=== PATIENT | female | born 1965 | race Hispanic/Latino ===

== ENCOUNTER 2017-07-09 18:35 | Emergency (ER) | payer BC, OTHER ==
[2017-07-09 19:38] LABS: BASOPHILS % (AUTO) 0.5 % (0.0-5.0); EOSINOPHILS % (AUTO) 1.4 % (0.0-8.0); HEMATOCRIT 40.2 % (36-48); LYMPHOCYTES % (AUTO) 37.2 % (21.0-51.0); MEAN CORPUSCULAR HEMOGLOBIN 29.7 pg (27.0-33.0); MEAN CORPUSCULAR HGB CONC 35.1 g/dL (32.0-36.0); MEAN CORPUSCULAR VOLUME 84.6 fL (79-99); MONOCYTES % (AUTO) 9.6 % (3.0-13.0); NEUTROPHILS % (AUTO) 51.3 % (40.0-77.0); NUCLEATED RED BLOOD CELLS 0.2 % (0.0-0.19); PLATELET COUNT (AUTO) 192 K/uL (130-400); RED BLOOD CELL COUNT(AUTO) 4.76 MIL/uL (4.00-5.50); WHITE BLOOD COUNT (AUTO) 6.1 K/uL (4.8-10.8)
[2017-07-09 19:42] LABS: CREATININE 0.8 mg/dL (0.5-1.5); POTASSIUM 3.6 mmol/L (3.5-5.1)
[2017-07-09 19:50] LABS: APPEARANCE,URINE Clear (CLEAR); BILIRUBIN,URINE Negative (NEGATIVE); COLOR,URINE Yellow (YELLOW); GLUCOSE, URINE (UA) Negative (NEGATIVE); KETONES,URINE Negative (NEGATIVE); LEUKOCYTE ESTERASE ,URINE Small (NEGATIVE); NITRATE,URINE Negative (NEGATIVE); OCCULT BLOOD,URINE Negative (NEGATIVE); PROTEIN,URINE Negative (NEGATIVE); UROBILINOGEN,URINE 0.2 mg/dL (0.2-1.0)
[2017-07-09 19:57] LABS: AMPHET/METH SCREEN,URINE NEGATIVE (NEGATIVE); BARBITURATE SCREEN, URINE NEGATIVE (NEGATIVE); BENZODIAZEPINES SCREEN,URINE NEGATIVE (NEGATIVE); CANNABINOID SCREEN,URINE NEGATIVE (NEGATIVE); COCAINE SCREEN,URINE NEGATIVE (NEGATIVE); OPIATE SCREEN,URINE NEGATIVE (NEGATIVE); PHENCYCLIDINE SCREEN,URINE NEGATIVE (NEGATIVE)
[2017-07-09 20:07] LABS: BACTERIA,URINE Few /HPF (None Seen); RBC,URINE 0-1 /HPF (0-1)
[2017-07-09 20:09] LABS: MUCUS,URINE Few LPF (None Seen); SQUAMOUS EPITHELIAL CELL,UR Few /HPF (0-2)
[2017-07-09] MEDS ORDERED: KETOROLAC TROMETHAMINE 30MG/ML ONE (21:07)
== END 2017-07-09 21:19 | disposition home or self-care (01) ==
LOC: EDH 18:35
DX: R51 Headache (principal); N39.0 Urinary tract infection, site not specified; Z87.442 Personal history of urinary calculi; M54.5 Low back pain
CPT/HCPCS: 36415; 70450; 80048; 80305; 81001; 85025; 96372; 99285; J1885

== ENCOUNTER 2023-05-18 08:23 | Emergency (ER) | payer BC ==
[~2023-05-18] VITALS: Ht 149.9 cm; Wt 72.6 kg
[~2023-05-18 08:23] MED LIST: CEPH500B PO; KETO10 PO; ONDA22I PO
[2023-05-18 08:53] VITALS: BP 145/80; PULSE 76; RESP 16
[2023-05-18] MEDS: METOCLOPRAMIDE 10 MG/2 ML VIAL IVP ONE (09:02)
[2023-05-18] MEDS: FAMOTIDINE 20MG VIAL IV ONE (09:02)
[2023-05-18] MEDS: TAMSULOSIN HCL 0.4 MG CAP.ER.24H PO ONE (09:02)
[2023-05-18] MEDS: KETOROLAC 30MG VIAL (30MG/ML) IVP ONE (09:03)
[2023-05-18] MEDS: 0.9%NACL 1000ML 1,000 ML IV ONE (09:03)
[2023-05-18] MEDS ORDERED: KETO10 PO (09:12)
[2023-05-18] MEDS ORDERED: METO-296 PO (09:12)
[2023-05-18] MEDS ORDERED: TAMS-1 PO (09:12)
[2023-05-18] MEDS ORDERED: FAMO-136 PO (09:12)
== END 2023-05-18 09:45 | disposition home or self-care (01) ==
LOC: EDH 08:23
DX: N20.0 Calculus of kidney (principal); N23 Unspecified renal colic; Z90.49 Acquired absence of other specified parts of digestive tract
CPT/HCPCS: 99284; 96374; 96375; 96361; J3490; J7030; J1885; J2765